=== PATIENT | male | born 1985 | race Hispanic/Latino ===

== ENCOUNTER 2016-10-03 22:34 | Emergency (ER) | payer OTHER, BC ==
[2016-10-03 22:44] VITALS: BP 110/70; PULSE 86; RESP 20; TEMP 98.2; O2SAT 97
[2016-10-03] MEDS ORDERED: Tetanus/Diphtheria Toxoids 0.5 ml Syringe IM ONE ×2 (23:02→23:07)
[2016-10-03] MEDS ORDERED: Bacitracin 500 Units/gm Oint Foilpak UD TOP STA (23:02)
[2016-10-03] MEDS ORDERED: Bacitracin 500 Units/gm Oint Foilpak UD ONE (23:22)
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
== END 2016-10-04 00:35 | disposition home or self-care (01) ==
LOC: C.ER 22:34
DX: S50.312A Abrasion of left elbow, initial encounter (principal); S80.212A Abrasion, left knee, initial encounter; S60.512A Abrasion of left hand, initial encounter; S60.511A Abrasion of right hand, initial encounter; T14.8 Other injury of unspecified body region; V13.4XXA Pedal cycle driver injured in collision with car, pick-up truck or van in traffic accident, initial encounter; Y93.55 Activity, bike riding; Y92.410 Unspecified street and highway as the place of occurrence of the external cause